=== PATIENT | male | born 1955 | race Caucasian/White ===

== ENCOUNTER 2017-04-02 08:51 | Outpatient (CLI) | payer OTHER | END 2017-04-02 08:52 | disposition home or self-care (01) | LOC: DTY/OP 08:51 | PROVIDERS: ATTEND Surgery | DX: Z01.818 Encounter for other preprocedural examination (principal); E66.01 Morbid (severe) obesity due to excess calories | CPT/HCPCS: 97802 ==

== ENCOUNTER 2017-04-23 07:28 | Outpatient (CLI) | payer MEDICARE | END 2017-04-23 07:29 | disposition home or self-care (01) | LOC: LABBT 07:28 | PROVIDERS: ATTEND Surgery | DX: Z01.818 Encounter for other preprocedural examination (principal); E11.9 Type 2 diabetes mellitus without complications; G47.30 Sleep apnea, unspecified; E78.5 Hyperlipidemia, unspecified; I10 Essential (primary) hypertension ==

== ENCOUNTER 2017-04-23 08:00 | Inpatient (IN) | payer MEDICARE ==
[2017-04-24 11:14] VITALS: BMI 52.8
[2017-04-26] MEDS ORDERED: CEFAZOLIN/Water 2 GM/20 ML SYRINGE ONE (06:50)
[2017-04-26] MEDS ORDERED: Heparin 5,000 UNITS/ML VIAL ONE (06:50)
[2017-04-26] MEDS ORDERED: Bupivacaine/Epinephrine 0.25% 30 ML VIAL ONE (07:09)
[2017-04-26] MEDS ORDERED: Lidocaine 1% (PF) 30 ML VIAL ONE (07:27)
[2017-04-26] MEDS ORDERED: HYDROmorphone 0.5 MG/0.5 ML SYRINGE ONE ×3 (07:27→10:08)
[2017-04-26] MEDS ORDERED: Fentanyl 100 MCG/2 ML VIAL ONE ×2 (07:27→09:55)
[2017-04-26] MEDS ORDERED: Midazolam HCl 2 mg/2 ml Vial ONE ×2 (07:27→07:29)
[2017-04-26] MEDS ORDERED: Promethazine HCl 25 MG/ML VIAL IM PRN ×3 (08:30→09:24)
[2017-04-26] MEDS ORDERED: HYDROmorphone 2 MG/ML VIAL SLOW IVP PRN (08:30)
[2017-04-26] MEDS ORDERED: Zolpidem Tartrate 5 MG TAB PO PRN (08:30)
[2017-04-26] MEDS ORDERED: HYDROmorphone 10 mg/100 ml CADD IVPB PRN (08:30)
[2017-04-26] MEDS ORDERED: Naloxone HCl 0.4 mg/ml Vial IV PRN (08:30)
[2017-04-26] MEDS ORDERED: Promethazine HCl 25 MG/ML VIAL SLOW IVP PRN (08:30)
[2017-04-26] MEDS ORDERED: diphenhydrAMINE 50 MG/ML VIAL IM PRN (08:30)
[2017-04-26] MEDS ORDERED: diphenhydrAMINE 50 MG/ML VIAL IVP PRN ×2 (08:30→09:24)
[2017-04-26] MEDS ORDERED: diphenhydrAMINE 25 MG CAP PO PRN (08:30)
[2017-04-26] MEDS ORDERED: Communication Order-Pharmacy FS SCH (08:30)
[2017-04-26] MEDS ORDERED: Ondansetron HCl/PF 4 MG/2 ML Vial IVP PRN ×3 (08:30→09:24)
[2017-04-26] MEDS ORDERED: Dextrose 50% Abboject 50 ML SYRINGE SLOW IVP PRN (09:24)
[2017-04-26] MEDS ORDERED: Dextrose 5% in Water 1,000 ML IV PRN (09:24)
[2017-04-26] MEDS ORDERED: hydrALAZINE 20 MG/ML VIAL SLOW IVP PRN (09:24)
[2017-04-26] MEDS ORDERED: Hydrocodone-Acetamin 15 ML UDCUP PO PRN (09:24)
--- NOTE | 2017-04-26 09:41 | OP ---
DATE OF PROCEDURE: 04/26/2017 PREOPERATIVE DIAGNOSIS: Morbid obesity. SURGEON: Lb Kelly M.D. PROCEDURE: Laparoscopic sleeve gastrectomy, intraoperative esophagogastroscopy, INDICATIONS: The patient is a 62-year-old male who has been morbidly obese. He has attempted multip le weight loss programs without success. FINDINGS: A 38 [place] bougie used. PROCEDURE IN DETAIL: After informed consent was obtained, the patient was taken to the operating mary m and given general endotracheal anesthesia. He was placed in the supine position. The abdomen was prepped and draped in the usual fashion. Local anesthesia infiltrated subcutaneously and deep and a 12 mm incision was performed approximately 8 inches below the xiphoid slightly to the left. Veress n eedle inserted. Drop test performed. Pneumoperitoneum was created to a volume of 2 liters of carbon dioxide. Utilizing a bladeless 12 mm trocar and 0 degree laparoscope direct visual entry in the abd ominal cavity was performed. Pneumoperitoneum was created to a pressure of 15 mmHg. The patient nica papo in steep reverse Trendelenburg position. Nathansen liver retractor inserted. Left lobe of liver retracted superiorly. The pylorus identified, a 12 mm port placed on the right beneath it and two 1 2s placed left subcostal. The omentum was taken off the greater curvature 5 cm from the pylorus util izing the LigaSure. Short gastrics divided with the LigaSure and left crura defined with the LigaSur e. A 38-[place] bougie inserted directed into the antrum. The linear 60 mm green load stapler used t o divide the antrum to the bougie. A second green load was then used along the bougie. Then two gol d loads and then a series of blues through the angle of His. Intraoperative endoscopy was performed. The video endoscope inserted under direct vision and advanced into the sleeve. The staple line ins pected. There was no bleeding. Staple line then tested by inflating the new stomach with pressurize d air under water. There was no air leak. Stomach decompressed. Scope removed. Remnant stomach re moved from the abdomen through the left lateral port site. The fascia closed with 0 Vicryl suture an d the GraNee needle. Trocars and retractors removed after hemostasis assured and the skin closed wit h interrupted 4-0 Rapide. Dermabond applied. The patient tolerated the procedure well and transferr ed to recovery in good condition. Sponge and needle count verified correct x2.
[2017-04-26] MEDS ORDERED: Ketorolac Tromethamine 30 MG/ML VIAL IVP SCH (12:00)
[2017-04-26] MEDS ORDERED: Acetaminophen 1,000 MG in Premix Bag 1 BAG IVPB SCH (12:00)
[2017-04-26] MEDS: D5 1/2 NS w/20 mEq KCL 1,000 ML IV SCH ×2 (13:04→17:35)
[2017-04-26] MEDS: Acetaminophen 1,000 MG in Premix Bag 1 BAG IVPB SCH ×2 (15:54→22:17)
[2017-04-26] MEDS: CEFAZOLIN/Water 2 GM/20 ML SYRINGE SLOW IVP SCH ×2 (15:55→22:19)
[2017-04-26] MEDS: Ketorolac Tromethamine 30 MG/ML VIAL IVP SCH ×2 (15:55→22:18)
[2017-04-26] MEDS ORDERED: Ketorolac Tromethamine 30 MG/ML VIAL ONE (17:09)
[2017-04-26] MEDS ORDERED: Glycopyrrolate 0.2 MG/ML 5 ML SYRINGE ONE (17:09)
[2017-04-26] MEDS ORDERED: Lidocaine 1% PF 5 ML VIAL ONE (17:09)
[2017-04-26] MEDS ORDERED: Ondansetron HCl/PF 4 MG/2 ML Vial ONE (17:09)
[2017-04-26] MEDS ORDERED: Propofol 200 MG/20 ML VIAL ONE (17:09)
[2017-04-26] MEDS ORDERED: Dexamethasone 20 MG/5 ML VIAL ONE (17:09)
[2017-04-26] MEDS ORDERED: Enoxaparin Sodium 40 MG/0.4 ML SYRINGE SC SCH (21:00)
[2017-04-27] MEDS: Acetaminophen 1,000 MG in Premix Bag 1 BAG IVPB SCH ×2 (02:46→09:22)
[2017-04-27] MEDS: Ketorolac Tromethamine 30 MG/ML VIAL IVP SCH ×2 (02:47→09:21)
[2017-04-27 05:47] LABS: #Lymphocytes 1.6 thou/uL (1.20-3.40); #Monocytes 0.8 thou/uL (0.11-0.59); #Neutrophils 9.1 thou/uL (1.40-6.50); %Basophils 0.1 % (0.0-1.0); %Eosinophils 0.2 % (0.0-10.0); %Lymphocytes 13.5 % (21.0-51.0); %Monocytes 7.3 % (0.0-10.0); Hematocrit 43.1 % (42.0-52.0); Mean Platelet Volume 8.5 fL (7.4-10.4); White Blood Cell (WBC) Count 11.5 thou/uL (4.8-10.8)
[2017-04-27 06:01] LABS: Anion Gap 11 mmol/L (10-20); BUN (Urea Nitrogen) 22 mg/dL (8.4-25.7); Calc. Creatinine Clearance 167 mL/min (70-130); Calcium 9.6 mg/dL (7.8-10.44); Carbon Dioxide 27 mmol/L (22-29); Chloride 103 mmol/L (98-107); Estimated GFR-MDRD 61
[2017-04-27] MEDS: D5 1/2 NS w/20 mEq KCL 1,000 ML IV SCH ×2 (07:10→10:09)
[2017-04-27] MEDS ORDERED: Enoxaparin Sodium 40 MG/0.4 ML SYRINGE SC SCH (09:00)
[2017-04-27] MEDS ORDERED: Pantoprazole 40 MG VIAL IVP SCH (09:00)
--- NOTE | 2017-04-27 09:13 | RAD ---
SINGLE CONTRAST UPPER GI: Date: 04/27/17 HISTORY: Follow-up bariatric surgery. FLUOROSCOP TIME: 0.3 minutes. DOSE: 18.999 mGy*cm^2. TECHNIQUE/FINDINGS: The patient was given 15 mL of Gastrografin orally in the upright position. The distal esophagus had a somewhat corkscrew-type appearance. Contrast media readily passed through the esophagus and postope rative stomach. No evidence of extravasation. IMPRESSION: No evidence for obstruction or extravasation. POS: DEREK
--- NOTE | 2017-04-27 13:00 | DIS ---
DISCHARGE DIAGNOSIS: Morbid obesity. PROCEDURES DURING ADMISSION: Laparoscopic sleeve gastrectomy, intraoperative esophagogastroscopy, an d postoperative Gastrografin swallow. HOSPITAL COURSE: The patient was admitted, taken to the operating room and given general anesthesia and underwent a sleeve gastrectomy. Postoperatively, he has done well. His x-ray was fine. He is t olerating liquids well. He is discharged home on hydrocodone, Zofran and Lovenox for history of thro mboembolic disease in the past. He will start his Coumadin tomorrow do and he will do Lovenox 100 b. i.d. for the next 5 days.
[2017-04-27 13:28] VITALS: TEMP 97.4
[2017-04-27 13:57] VITALS: BP 133/81
== END 2017-04-27 13:58 | disposition home or self-care (01) | DRG 621 ==
LOC: SURG A 04-26 05:54
PROVIDERS: ADMIT Surgery; ATTEND Surgery
PROC: 0DB64Z3 Excision of Stomach, Percutaneous Endoscopic Approach, Vertical (ICD-10-PCS; principal; 2017-04-26)
PROC: 0DJ08ZZ Inspection of Upper Intestinal Tract, Via Natural or Artificial Opening Endoscopic (ICD-10-PCS; 2017-04-26)
DX: E66.01 Morbid (severe) obesity due to excess calories (principal); I10 Essential (primary) hypertension; Z68.43 Body mass index [BMI] 50.0-59.9, adult; E11.9 Type 2 diabetes mellitus without complications; G47.30 Sleep apnea, unspecified; E78.5 Hyperlipidemia, unspecified
CPT/HCPCS: 36415; 71020; 74241; 80048; 80053; 80076; 83036; 85025; 88307; 88312; 93005; 93010; 94760; C9113; J0131; J1100; J1170; J1644; J1650; J1885; J2001; J2250; J2405; J2550; J2704; J3010

== ENCOUNTER 2017-04-24 10:50 | Outpatient (CLI) | payer MEDICARE ==
[2017-04-24 13:01] LABS: #Basophils 0.1 thou/uL (0.0-0.2); #Eosinphils 0.1 thou/uL (0.0-0.7); #Lymphocytes 2.8 thou/uL (1.20-3.40); #Monocytes 0.8 thou/uL (0.11-0.59); #Neutrophils 5.6 thou/uL (1.40-6.50); %Basophils 0.6 % (0.0-1.0); %Eosinophils 1.5 % (0.0-10.0); %Lymphocytes 29.4 % (21.0-51.0); %Monocytes 8.9 % (0.0-10.0); Mean Platelet Volume 8.4 fL (7.4-10.4); Red Blood Cell (RBC) Count 4.91 mill/uL (4.70-6.10); White Blood Cell (WBC) Count 9.4 thou/uL (4.8-10.8)
[2017-04-24 13:11] LABS: Hemoglobin A1c 6.2 % (4.0-6.0)
[2017-04-24 13:29] LABS: ALT (SGPT) 28 U/L (8-55); AST (SGOT) 24 U/L (5-34); Alkaline Phosphatase 71 U/L (40-150); Anion Gap 14 mmol/L (10-20); BUN (Urea Nitrogen) 35 mg/dL (8.4-25.7); Bilirubin, Direct 0.4 mg/dL (0.1-0.3); Bilirubin, Total 1.1 mg/dL (0.2-1.2); Calc. Creatinine Clearance 0 mL/min (70-130); Calcium 10.3 mg/dL (7.8-10.44); Carbon Dioxide 26 mmol/L (22-29); Chloride 99 mmol/L (98-107); Estimated GFR-MDRD 47; Globulin 4.2 g/dL (2.4-3.5); Protein, Total 8.6 g/dL (6.0-8.3)
--- NOTE | 2017-04-24 13:29 | RAD ---
CHEST PA AND LATERAL: History: 62-year-old male for pre-operative evaluation. Comparison: 12-08-15 FINDINGS: Heart size is within normal limits. There is no confluent pneumonia or overt edema. There are some bi lateral lateral lower lung zone faint opacities which appear to be stable when compared to the prior 2016. These are probably related to either pleural or extrapleural changes rather than parenchymal ch anges. No evidence for acute pleural effusion. IMPRESSION: Bilateral lower lung zone lateral faint opacities which appear to be stable compared to the 12-08-15 s tudy, having more of pleural or extrapleural appearance rather than a parenchymal process. No evidenc e for confluent pneumonia, overt edema or acute pleural effusion. Depending upon concern, nonemergent follow up chest CT scan might allow further characterization of these bilateral faint opacities. POS: DEREK
== END 2017-04-24 10:51 | disposition home or self-care (01) ==
LOC: LABBT 10:50
PROVIDERS: ATTEND Surgery
DX: Z01.818 Encounter for other preprocedural examination (principal); E11.9 Type 2 diabetes mellitus without complications; G47.30 Sleep apnea, unspecified; E78.5 Hyperlipidemia, unspecified; I10 Essential (primary) hypertension
CPT/HCPCS: 71020; 80053; 80076; 83036; 85025; 93005; 93010